=== PATIENT | male | born 1960 | race Caucasian/White ===

== ENCOUNTER 2019-10-12 00:15 | Outpatient (CLI) | payer BC, SELFPAY ==
[2019-10-12 20:23] LABS: SARS-CoV-2 RNA PCR Negative
== END 2019-10-12 00:16 | disposition home or self-care (01) ==
LOC: ANHCOVIDDT 00:15
PROVIDERS: PCP Family Medicine; Visit Provider Internal Medicine Gastroenterology
DX: Z01.812 Encounter for preprocedural laboratory examination (principal); Z20.828 Contact with and (suspected) exposure to other viral communicable diseases
CPT/HCPCS: 87635; C9803; U0003

== ENCOUNTER 2019-10-14 01:46 | Day surgery (SDC) | payer BC, SELFPAY ==
[2019-10-02 11:40] VITALS: BMI 31.9
[2019-10-14 06:25] VITALS: BP 139/83; PULSE 56; RESP 16; TEMP 36.3; O2SAT 98
[2019-10-14] MEDS: LACTATED RINGERS 1,000 ML 150 ML IV CONT (06:37)
--- NOTE | 2019-10-14 06:59 | WPDANESEPPF ---
Anes - Initial Pre Proc Eval Procedure: Operation Date: 10/14/19 07:30 Proposed Procedures p Screening Colonoscopy - Art Ernst MD Date/Time: 10/14/19 06:59 Surgeon: Art Ernst MD Pre Op Diagnosis: Neoplasm Screening Patient Data Age: 59 Gender: M Height: 6 ft 2 in Weight: 115 kg Last Vital Signs Temp 36.3 C L 10/14/19 06:25 Pulse 56 L 10/14/19 06:25 Resp 16 10/14/19 06:25 BP 139/83 10/14/19 06:25 Pulse Ox 98 10/14/19 06:25 Allergies Allergy/AdvReac Type Severity Reaction Status Date / Time No Known Allergies Allergy Unverified 10/02/19 11:39 Home Medications Medication Instructions Recorded Confirmed Type aspirin [Adult Low Dose Aspirin] 81 mg PO DAILY 10/02/19 10/14/19 History Patient hx anesthesia problems: none Family hx anesthesia problems: other (father confusion) PMFSH Past Medical History Medical History Afib Surgical History Surgical History S/P ablation of atrial fibrillation Social History Social History Smoking status: Never smoker Alcohol intake: current Anes - Eval Final PreProcedure Day of Procedure 10/14/19 06:59 Patient weight: obese Heart: regular rate and rhythm Lungs: clear to auscultation Airway: Mallampati scale class II Neurological: alert and oriented Last oral intake: >/= 8 hours ASA classification: III Emergent: no Anesthetic plan: proceed Anesthesia type and monitoring: general GIVS and standard monitoring Informed Consent: The patient's anesthetic plan and its attendant risks and benefits were discussed with the patient/family/POA. Questions were solicited and answers provided to the satisfaction of the patient/family/POA.
--- NOTE | 2019-10-14 07:07 | PM.HPGS ---
History of Present Illness History of Present Illness Consent: Risks, benefits, and alternatives have been discussed and questions answered. Patient agrees to proceed with procedure. Chief complaint: Neoplasm Screening Narrative: Zoltan Rahman is a 59 year old male K[facility] screening colonoscopy REPLACED BY [facility] Past Medical History Medical History Afib Surgical History Surgical History S/P ablation of atrial fibrillation Social History Social History Smoking status: Never smoker Alcohol intake: current Meds Home Medications and Allergies Home Medications Medication Instructions Recorded Confirmed Type aspirin [Adult Low Dose Aspirin] 81 mg PO DAILY 10/02/19 10/14/19 History Allergies Allergy/AdvReac Type Severity Reaction Status Date / Time No Known Allergies Allergy Unverified 10/02/19 11:39 Vital Signs Vital Signs - 24 hr 10/14/19 06:25 Temperature 36.3 C L Pulse Rate 56 L Respiratory Rate 16 Blood Pressure 139/83 Pulse Oximetry 98 Exam Resp: Auscultation: clear to auscultation bilaterally Cardio: Rate: regular rate Rhythm: regular rhythm GI: GI Palp: Yes Soft to palpation and No Tenderness to palpation present (GI) Assessment and Plan Assessment and plan (1) Colon cancer screening: Code(s): Z12.11 - Encounter for screening for malignant neoplasm of colon Status: Acute Assessment and Plan: Colonoscopy with possible biopsy or polypectomy or cautery or injection of substances.
[2019-10-14 07:53] VITALS: BP 111/71; PULSE 51; RESP 22; O2SAT 100
[2019-10-14 08:03] VITALS: BP 118/76; PULSE 49; RESP 17; O2SAT 100
== END 2019-10-14 08:30 | disposition home or self-care (01) ==
PROVIDERS: PCP Family Medicine; Visit Provider Internal Medicine Gastroenterology
PROC: 0DJD8ZZ Inspection of Lower Intestinal Tract, Via Natural or Artificial Opening Endoscopic (ICD-10-PCS; CPT 45378; principal; 2019-10-14 07:30)
DX: Z12.11 Encounter for screening for malignant neoplasm of colon (principal); K63.5 Polyp of colon; K57.30 Diverticulosis of large intestine without perforation or abscess without bleeding; Z79.82 Long term (current) use of aspirin; E66.9 Obesity, unspecified; Z68.32 Body mass index [BMI] 32.0-32.9, adult
CPT/HCPCS: 45385; 88305; J2704; J7120